=== PATIENT | male | born 1985 | race Caucasian/White ===

== ENCOUNTER 2017-01-19 21:47 | Emergency (ER) | payer SELFPAY ==
[~2017-01-19 21:47] MED LIST: AMOXICILLIN875 MG PO; ANUSOL-HC SUPP25 M1 PR; BACTRIM DS TABL1 TA1; CLEOCIN HCL300 M1 PO; COLACE PO; DICLOFENAC; DICLOFENAC PO; DOXYCYCLINE HY100 M1 PO; FLEXERIL10 MG PO; HYCODAN60 ML 5MG/ DOB; IBUPROFEN800 MG PO; LORTAB 5/500 TA1 TA1 PO; MOTRIN600 MG PO; NO MEDICATIONS; NUPERCAINAL 1%30 G1 EXT; TYLENOL #3 PO; VICODIN 5/1 TAB 5/50 PO; VOLTAREN75 MG PO
[2017-01-19] MEDS ORDERED: PREDNISONE PO (23:10)
[2017-01-19] MEDS ORDERED: XODOL 7.5-3001 EACH PO (23:10)
== END 2017-01-19 23:10 | disposition home or self-care (01) ==
LOC: SED 21:47
DX: M54.42 Lumbago with sciatica, left side (principal); Z88.8 Allergy status to other drugs, medicaments and biological substances; F17.210 Nicotine dependence, cigarettes, uncomplicated
CPT/HCPCS: 99283

== ENCOUNTER 2017-03-31 23:42 | Emergency (ER) | payer SELFPAY ==
[~2017-03-31] VITALS: Ht 185.4 cm; Wt 97.5 kg
[~2017-03-31 23:42] MED LIST changes: +PREDNISONE PO; +XODOL 7.5-3001 EACH PO
== END 2017-04-01 00:25 | disposition home or self-care (01) ==
LOC: SED 23:42
DX: L73.2 Hidradenitis suppurativa (principal); F41.9 Anxiety disorder, unspecified; F17.210 Nicotine dependence, cigarettes, uncomplicated; Z86.14 Personal history of Methicillin resistant Staphylococcus aureus infection; Z79.899 Other long term (current) drug therapy
CPT/HCPCS: 99283